=== PATIENT | male | born 1985 | race American Indian/Alaskan Native ===

== ENCOUNTER → 2016-12-06 | Outpatient (CLI) | payer MEDICARE, MEDICAID ==
[~2016-12-06] MED LIST: ACHD5005 PO; CYCL10TA9 PO; NAPR-243 PO
--- NOTE | 2016-12-06 17:25 | Diagnostic Imaging Report ---
PROCEDURE: MRI right joint upper extremity without contrast. TECHNIQUE: Multiplanar, multisequence non contrast-enhanced MRI of the right upper extremity was accomplished. INDICATION: Injury. Pain. FINDINGS: There is marrow edema involving the portion of the hamate bone and triquetrum in the medial wrist, which is directly deep to the marker placed over the site of the patient's pain. This is likely related to bone contusion. No additional marrow edema is seen. The triangular fibrocartilage complex appears intact. There is no widening of the scapholunate joint space with low signal scapholunate ligament appearing to be intact. Extensor and flexor tendon compartments appear grossly unremarkable without evidence of tear. There is a 9 mm oval fluid collection between the third and fourth proximal metacarpals which may represent a ganglion cyst, and unlikely related to the patient's current injury. No additional abnormal fluid collection or soft tissue mass is suspected. IMPRESSION: Findings are suggestive of moderate bone contusion involving the hamate and triquetral bones in the medial wrist which is just deep to a marker placed on the skin at the site of the patient's pain. There is no evidence of ligamentous or tendon injury. Dictated by: Dictated on workstation # [id number]
== END ==
LOC: RAD 16:16
PROVIDERS: ATTEND Nurse Practitioner
DX: S60.211A Contusion of right wrist, initial encounter (principal); X58.XXXA Exposure to other specified factors, initial encounter; Y99.8 Other external cause status
CPT/HCPCS: 73221

== ENCOUNTER 2019-12-01 10:22 | Emergency (ER) | payer MEDICARE, MEDICAID ==
[~2019-12-01] VITALS: Ht 162.5 cm; Wt 70.4 kg
--- NOTE | 2019-12-01 10:43 | ED Upper Extremity ---
General Chief Complaint: Trauma-Non Activation Stated Complaint: R ARM INJ Nursing Triage Note: AMB TO ROOM REPORTS LAST NIGHT LAST NIGHT FELL OFF BULL UNSURE HOW HE FELL OFF NOTICD THAT HIS R WRIST WAS STARTING TO SWELL TODAY HAND AND ARM SWOLLEN. Nursing Sepsis Screen: No Definite Risk Source: patient Exam Limitations: no limitations History of Present Illness Date Seen by Provider: Dec 01, 2019 Time Seen by Provider: 10:41 Initial Comments To ER with reports that he was bucked off of a bull last night at 9:30 and now has right wrist pain. Onset: yesterday Severity: moderate Pain/Injury Location: right wrist Method of Injury: fell Modifying Factors: Worse With Movement Allergies and Home Medications Allergies Coded Allergies: No Known Drug Allergies (Unverified , 08/24/13) Home Medications Hydrocodone Bit/Acetaminophen 1 Each Tablet, 1-2 EACH PO Q6H PRN Prescribed by: NIRAV JAMISON on 11/23/10 0159 Patient Home Medication List Home Medication List Reviewed: Yes Review of Systems Constitutional: see HPI EENTM: see HPI Respiratory: no symptoms reported Cardiovascular: no symptoms reported Genitourinary: no symptoms reported Musculoskeletal: no symptoms reported Skin: no symptoms reported Psychiatric/Neurological: No Symptoms Reported Past Etcxzwy-Jjwutw-Vfejek Hx Patient Social History Recent Foreign Travel: No Contact w/Someone Who Travel: No Recent Infectious Disease Expo: No Physical Exam Vital Signs Vital Signs - First Documented 12/01/19 10:25 Temp 37.0 Pulse 107 Resp 18 B/P (MAP) 135/88 (104) Pulse Ox 97 O2 Delivery Room Air Capillary Refill : Less Than 3 Seconds Height, Weight, BMI Height: 5'4" Weight: 150lbs. oz. 68.531649nt; 26.00 BMI Method: General Appearance: WD/WN, no apparent distress HEENT: PERRL/EOMI, normal ENT inspection Respiratory: no respiratory distress, no accessory muscle use Gastrointestinal: normal bowel sounds, non tender Shoulder: normal inspection, non-tender Elbow/Forearm: normal inspection, non-tender Wrist: Yes limited ROM, Yes soft tissue tenderness, Yes swelling Hand: soft tissue tenderness Neurologic/Psychiatric: alert, normal mood/affect, oriented x 3 Skin: normal color, warm/dry Progress/Results/Core Measures Results/Orders My Orders Orders - IRLANDA AMAYA APRN Wrist, Right, 3 Views Or More (12/01/19 10:40) Hydrocodone/Apap 5/325 Tablet (Lortab 5 (12/01/19 10:45) Medications Given in ED Current Medications Medications Dose Ordered Sig/Adryan Route Start Time Stop Time Status Last Admin Dose Admin Acetaminophen/ Hydrocodone Bitart 1 tab ONCE ONCE PO 12/01/19 10:45 12/01/19 10:46 DC 12/01/19 10:46 1 TAB Vital Signs/I&O 12/01/19 10:25 Temp 37.0 Pulse 107 Resp 18 B/P (MAP) 135/88 (104) Pulse Ox 97 O2 Delivery Room Air Blood Pressure Mean: 104 Departure Impression Primary Impression: Right wrist fracture Qualified Codes: S62.101A - Fracture of unspecified carpal bone, right wrist, initial encounter for closed fracture Disposition: HOME, SELF-CARE Condition: Stable Departure-Patient Inst. Decision time for Depature: 11:36 Referrals: NO,LOCAL PHYSICIAN (PCP) Primary Care Physician GUILLE ANDUJAR MD, MICHAEL P MD Patient Instructions: Wrist Fracture (DC) Add. Discharge Instructions: 1. Keep the splint on clean and dry at all times until you follow up with orthopedics. Call one of the orthopedic surgeons today to make an appointment to be seen within the next 2 weeks. Pain medication as directed. All discharge instructions reviewed with patient and/or family. Voiced understanding. IRLANDA AMAYA APRN Dec 01, 2019 10:43
[2019-12-01] MEDS ORDERED: HYDROcodone/APAP 5 MG/325 MG (LORTAB) TAB PO ONE (10:45)
--- NOTE | 2019-12-01 11:40 | Diagnostic Imaging Report ---
INDICATION: Fall with right wrist injury AP, oblique and lateral views of the right wrist are obtained. There are mildly comminuted fractures involving the distal aspect of right radius and ulna. Radial fracture extends to the articular surface with small amount of offset. There is no significant angulation. Nondisplaced fracture of the ulnar styloid process is present. No carpal fracture is seen. IMPRESSION: Mildly displaced intra-articular fractures of distal radius and ulna. Dictated by: Dictated on workstation # [id number]
[2019-12-01] MEDS ORDERED: HYDR-3870 PO (11:43)
[2019-12-01 11:47] VITALS: BP 135/88
--- NOTE | 2019-12-01 11:47 | NUR ---
SPLINT AND SLING PLACED BY Gabbi AMAYA APRN.
== END 2019-12-01 11:46 | disposition home or self-care (01) ==
LOC: EDUNIT# 10:22 → ER 10:23
DX: S62.101A Fracture of unspecified carpal bone, right wrist, initial encounter for closed fracture (principal); V80.018A Animal-rider injured by fall from or being thrown from other animal in noncollision accident, initial encounter
CPT/HCPCS: 29105; 73110; 99284; A4565

== ENCOUNTER → 2021-02-06 | Outpatient (CLI) | payer MEDICARE, MEDICAID ==
[~2021-02-06] MED LIST changes: +HYDR-3870 PO
--- NOTE | 2021-02-06 12:45 | Diagnostic Imaging Report ---
History: Right wrist fracture TECHNIQUE: 4 views of the right wrist COMPARISON: 12/01/2019 FINDINGS: There is a fracture through the base of the right ulnar styloid process. There does appear to be healing change since November 2019 however no definite bony bridging is seen. No new fracture is seen in the right wrist. There does appear to be healing of the distal radius fracture. Alignment is normal. IMPRESSION: 1. Healed distal right radius fracture. 2. Old nonunited, nondisplaced ulnar styloid process fracture. Dictated by: Dictated on workstation # [id number]
== END ==
LOC: ORTHO 10:46
PROVIDERS: ATTEND Orthopaedic Surgery
DX: M25.531 Pain in right wrist (principal); Z87.81 Personal history of (healed) traumatic fracture
CPT/HCPCS: 73110; G0463; 99203

== ENCOUNTER 2021-02-22 15:56 | Emergency (ER) | payer MEDICARE, MEDICAID ==
[~2021-02-22] VITALS: Ht 165 cm; Wt 27.0 kg
[2021-02-22 15:57] VITALS: BP 142/108
--- NOTE | 2021-02-22 16:10 | ED Lower Extremity ---
General Chief Complaint: Lower Extremity Stated Complaint: L ANKLE PAIN Nursing Triage Note: ARRIVED VIA WC TO ROOM WITH COMPLAINTS OF LEFT ANKLE PAIN. STATES HE INJURED IT YEARS AGO. Source: patient Exam Limitations: no limitations History of Present Illness Date Seen by Provider: Feb 22, 2021 Time Seen by Provider: 16:09 Initial Comments To ER with left ankle pain. He stood up from his desk and had immediate pain which then caused him to fall. The pain was present before the fall. He now has increased pain after the fall. Onset: just prior to arrival Severity: moderate Pain/Injury Location: left hip Method of Injury: fell Modifying Factors: Worse With Movement Allergies and Home Medications Allergies Coded Allergies: No Known Drug Allergies (Unverified , 08/24/13) Patient Home Medication List Home Medication List Reviewed: Yes Naproxen (Naprosyn) 500 Mg Tablet, 500 MG PO BID PRN for PAIN-MODERATE (5-7) Prescribed by: IRLANDA AMAYA on 02/22/21 1649 Discontinued Medications Hydrocodone Bit/Acetaminophen (Lortab 5 Mg Tablet) 1 Each Tablet, 1-2 EACH PO Q6H PRN Discontinued Reason: No Longer Taking Prescribed by: NIRAV JAMISON on 11/23/10 0159 Last Action: Discontinued Hydrocodone/Acetaminophen (Lorcet 5-325 mg Tablet) 1 Each Tablet, 1 EACH PO Q4- 6HR PRN for PAIN-MODERATE Discontinued Reason: No Longer Taking Prescribed by: IRLANDA AMAYA on 12/01/19 1143 Last Action: Discontinued Review of Systems Constitutional: see HPI EENTM: see HPI Respiratory: no symptoms reported Cardiovascular: no symptoms reported Genitourinary: no symptoms reported Musculoskeletal: see HPI, joint pain Skin: no symptoms reported Psychiatric/Neurological: No Symptoms Reported Past Loljssp-Noqair-Ggsuyc Hx Patient Social History Smoking Status: Current Everyday Smoker Substance use?: No Alcohol Frequency: Once in a while Past Medical History Surgeries: Yes Respiratory: No Cardiac: No Neurological: No Gastrointestinal: No Musculoskeletal: No Physical Exam Vital Signs Vital Signs - First Documented 02/22/21 15:57 Pulse 108 Resp 18 B/P (MAP) 142/108 (119) Pulse Ox 99 O2 Delivery Room Air Capillary Refill : Less Than 3 Seconds Height, Weight, BMI Height: 5'4" Weight: 150lbs. oz. 68.933973ia; 9.00 BMI Method: General Appearance: WD/WN, no apparent distress HEENT: PERRL/EOMI, normal ENT inspection Respiratory: no respiratory distress, no accessory muscle use Hips: bilateral hip non-tender, bilateral hip normal inspection, bilateral hip normal range of motion Legs: bilateral leg non-tender, bilateral leg normal inspection, bilateral leg normal range of motion Knees: bilateral knee non-tender, bilateral knee normal inspection, bilateral knee normal range of motion Ankles: right ankle non-tender; bilateral ankle normal inspection, bilateral ankle normal range of motion; left ankle limited range of motion, left ankle pain, left ankle other (There is no ecchymosis erythema or appreciable edema) Feet: bilateral foot non-tender, bilateral foot normal inspection, bilateral foot normal range of motion Neurologic/Psychiatric: alert, normal mood/affect, oriented x 3 Skin: normal color, warm/dry Progress/Results/Core Measures Results/Orders My Orders Orders - IRLANDA AMAYA APRN Ankle, Left, 3 Views (02/22/21 16:11) Ibuprofen Tablet (Motrin Tablet) (02/22/21 16:15) Hydrocodone/Apap 5/325 Tablet (Lortab 5 (02/22/21 16:15) Medications Given in ED Current Medications Medications Dose Ordered Sig/Adryan Route Start Time Stop Time Status Last Admin Dose Admin Acetaminophen/ Hydrocodone Bitart 1 ea ONCE ONCE PO 02/22/21 16:15 02/22/21 16:16 DC 02/22/21 16:20 1 EA Ibuprofen 800 mg ONCE ONCE PO 02/22/21 16:15 02/22/21 16:16 DC 02/22/21 16:20 800 MG Vital Signs/I&O 02/22/21 15:57 Pulse 108 Resp 18 B/P (MAP) 142/108 (119) Pulse Ox 99 O2 Delivery Room Air Blood Pressure Mean: 119 Departure Impression Primary Impression: Sprain and strain of ankle Disposition: 01 HOME, SELF-CARE Condition: Stable Departure-Patient Inst. Decision time for Depature: 16:47 Referrals: AKIL GOFF DPM NO,LOCAL PHYSICIAN (PCP) Primary Care Physician GUILLE ANDUJAR MD, CORIN Q DPM ZAFUTA, MICHAEL P MD Patient Instructions: Ankle Sprain ED Add. Discharge Instructions: 1. Call orthopedic surgeon of your choosing to make an appointment to be seen for follow-up or primary care. Elevate the foot is much as possible with an ice pack for the next 2 to 3 days. Use crutches as needed. Pain medication as directed. All discharge instructions reviewed with patient and/or family. Voiced understanding. Scripts Naproxen (Naprosyn) 500 Mg Tablet 500 MG PO BID PRN for PAIN-MODERATE (5-7), #30 TAB 0 Refills Prov: IRLANDA AMAYA APRN 02/22/21 Work/School Note: Work Release Form Date Seen in the Emergency Department: Feb 22, 2021 Return to Work: Feb 24, 2021 IRLANDA AMAYA APRN Feb 22, 2021 16:10
[2021-02-22] MEDS ORDERED: HYDROcodone/APAP 5 MG/325 MG (LORTAB) TAB PO ONE (16:15)
[2021-02-22] MEDS ORDERED: IBUPROFEN 800 MG (MOTRIN) TAB PO ONE (16:15)
--- NOTE | 2021-02-22 16:38 | Diagnostic Imaging Report ---
INDICATION: Left ankle pain. AP, oblique, and lateral views of the left ankle are obtained. FINDINGS: No definite fracture or acute bony abnormality is seen. There is soft tissue swelling. There is a calcification inferior to the tip of the medial malleolus of the distal tibia, which appears most likely chronic. IMPRESSION: No definite acute abnormality of the left ankle. Likely chronic calcification inferior to the tip of medial malleolus of the distal tibia. Soft tissue swelling is present. Dictated by: Dictated on workstation # [id number]
[2021-02-22] MEDS ORDERED: NAPR-1071 PO (16:49)
== END 2021-02-22 17:01 | disposition home or self-care (01) ==
LOC: EDUNIT# 15:56 → ER 15:57
DX: S93.402A Sprain of unspecified ligament of left ankle, initial encounter (principal); S96.912A Strain of unspecified muscle and tendon at ankle and foot level, left foot, initial encounter; F17.200 Nicotine dependence, unspecified, uncomplicated; W18.30XA Fall on same level, unspecified, initial encounter
CPT/HCPCS: 73610; 99282; L2114

== ENCOUNTER → 2021-02-26 | Outpatient (CLI) | payer MEDICARE, MEDICAID ==
[~2021-02-26] MED LIST changes: +GADOBUTROL 7.5 MMOL/7.5 ML (GADAVIST) VIAL IV ONE; +IOHEXOL 300 MG/ML 50 ML (OMNIPAQUE 300) VIAL IV ONE; +NAPR-1071 PO
--- NOTE | 2021-02-26 18:00 | Diagnostic Imaging Report ---
INDICATION: Right wrist injury riding a bull. Patient was brought to the procedure room and placed on table in the prone position. The dorsum of the right wrist was prepped and draped in the usual sterile fashion. A small amount of 1% lidocaine was utilized for local anesthesia. A 20-gauge needle was advanced and placed with its tip in the radiocarpal space. A small amount of mixture of iodinated contrast, normal saline, and gadolinium was injected under fluoroscopic observation. There was an accumulation of contrast in the dorsum of the wrist extending into the extensor tendon sheaths. Therefore, the needle was repositioned and contrast was injected, which did show a good flow into the radiocarpal space. A total of 57 seconds of fluoroscopic time was utilized. The needle was withdrawn, and hemostasis was obtained. Images do demonstrate a fracture through the ulnar styloid. IMPRESSION: Right wrist injection using fluoroscopy for MRI. Dictated by: Dictated on workstation # [id number]
--- NOTE | 2021-02-26 18:03 | Diagnostic Imaging Report ---
EXAMINATION: Magnetic resonance imaging of the right wrist with intra-articular contrast DATE: February 26, 2021. COMPARISON: MRI right wrist December 06, 2016. Right wrist arthrogram February 26, 2021. Right wrist radiograph February 06, 2021. HISTORY: 35-year-old male, right wrist pain. Injury bull riding. TECHNIQUE: Magnetic Resonance Imaging sequences were performed of the wrist following the intra-articular administration of contrast. FINDINGS: TRIANGULAR FIBROCARTILAGE COMPLEX: There is a tear of the central aspect of the triangular fibrocartilage disc with abnormal extension of contrast into the distal radioulnar joint. The tear is best demonstrated on coronal T1 fat saturation sequence image 10. INTRINSIC LIGAMENTS: The scapholunate and lunotriquetral ligaments are intact. JOINTS: The joint spaces are well preserved. There is no abnormal contrast extension into the midcarpal compartment. CARPAL TUNNEL: The flexor retinaculum is unremarkable. The flexor digitorum superficialis and profundus are intact. The median nerve is unremarkable. FLEXOR TENDONS: The flexor carpi ulnaris, flexor pollicis longus and carpi radialis are intact. EXTENSOR TENDONS: Radial side extensor tendons are intact including: extensor pollicis longus, extensor carpi radialis brevis, extensor carpi radialis longus, extensor pollicis brevis and abductor pollicis longus. The extensor carpi ulnaris, extensor digitorum, extensor digiti minimi and extensor indicis tendons are intact. BONE: The bones all have normal configuration. The bone marrow signal is within normal limits. Specifically, negative for fracture, osteomyelitis, osteonecrosis, or marrow replacing process. BURSAE AND SOFT TISSUES: The bursae and soft tissues surrounding the wrist are within normal limits. IMPRESSION: 1. Tear of the central aspect of the triangular fibrocartilage disc. 2. Intact scapholunate and lunotriquetral ligaments. 3. Intact tendons. 4. No acute fracture or bone contusion. Dictated by: Dictated on workstation # [id number]
== END ==
LOC: RAD 12:46
PROVIDERS: ATTEND Orthopaedic Surgery
DX: S63.591A Other specified sprain of right wrist, initial encounter (principal); Y93.I9 Activity, other involving external motion
CPT/HCPCS: 25246; 73115; 73222